=== PATIENT | female | born 1985 | race African-American/Black ===

== ENCOUNTER 2020-01-14 20:08 | Emergency (ER) | payer BC ==
[~2020-01-14] VITALS: Ht 172.7 cm; Wt 72.0 kg
[2020-01-14] MEDS ORDERED: SODIUM CHLORIDE 0.9% 1,000 ML IV ONE (20:33)
[2020-01-14 21:08] LABS: BASOPHILS % 0.9 % (0.0-2.0); EOSINOPHILS % 1.7 % (0.0-5.0); HEMATOCRIT. 31.9 % (36.0-48.0); HEMOGLOBIN. 11.4 g/dL (12.0-16.0); LYMPHOCYTES % 33.5 % (20.0-50.0); MEAN CORPUSCULAR HEMOGLOBIN 33.4 pg (28.0-32.0); MEAN CORPUSCULAR VOLUME 93.5 fL (81.0-99.0); MONOCYTES % 7.4 % (2.0-8.0); NEUTROPHILS % 56.5 % (40.0-76.0); PLATELET 329 x1000/uL (130-400); RED BLOOD CELL COUNT 3.41 mill/uL (4.2-5.4); RED CELL DISTRIBUTION WIDTH 12.9 % (11.6-14.6)
[2020-01-14 21:17] LABS: CHLORIDE 104 mEq/L (98-107)
[2020-01-14 21:29] LABS: B-HCG QUANTITATIVE 11 mIU/mL (<3)
[2020-01-14] MEDS ORDERED: ONDANSETRON HCL 4MG/2ML INJ IV ONE (21:45)
[2020-01-14] MEDS ORDERED: METHYLERGONOVINE MALEATE 0.2 MG/ML IM ONE (22:45)
[2020-01-14 23:05] LABS: HEMATOCRIT 30.6 % (36.0-48.0); HEMOGLOBIN 10.8 g/dL (12.0-16.0)
[2020-01-15] MEDS ORDERED: SODIUM CHLORIDE 0.9% 1,000 ML IV NR (00:44)
[2020-01-15] MEDS ORDERED: MISOPROSTOL 200MCG TABLET PO NR (00:45)
[2020-01-15 03:17] VITALS: BP 113/61
== END 2020-01-15 03:20 | disposition home or self-care (01) ==
LOC: ER 20:08
DX: N93.9 Abnormal uterine and vaginal bleeding, unspecified (principal); R42 Dizziness and giddiness
CPT/HCPCS: 36415; 76856; 80053; 81025; 84702; 85014; 85018; 85025; 86850; 86900; 86901; 96361; 96372; 96374; 99285; J2210; J2405; J7030